=== PATIENT | female | born 1945 ===

== ENCOUNTER 2023-01-12 11:31 | Day surgery (SDC) | payer OTHER ==
[~2023-01-12] VITALS: Ht 165.1 cm; Wt 68.8 kg
[2023-01-12] MEDS ORDERED: Tambocor100 MG PO (11:46)
[2023-01-12] MEDS ORDERED: ANAS1 PO (11:46)
[2023-01-12] MEDS ORDERED: ELIQUIS5 M2 PO (11:46)
[2023-01-12] MEDS ORDERED: FURO40 PO (11:47)
[2023-01-12] MEDS ORDERED: PRAV20 PO (11:48)
[2023-01-12] MEDS ORDERED: METO25ER PO (11:48)
--- NOTE | 2023-01-12 11:57 | NUR ---
01/12/23 1157 Carolina Martinez CALL LIGHT WITHIN REACH. TETRACAINE IN THE LEFT EYE AND PLEDGETT
== END 2023-01-12 13:52 | disposition home or self-care (01) ==
LOC: ORSCSDS 11:31
PROVIDERS: Ophthalmology
PROC: 08DK3ZZ Extraction of Left Lens, Percutaneous Approach (ICD-10-PCS; principal; 2023-01-12 13:00)
DX: H25.12 Age-related nuclear cataract, left eye (principal); I10 Essential (primary) hypertension; I48.91 Unspecified atrial fibrillation; E78.5 Hyperlipidemia, unspecified; Z79.01 Long term (current) use of anticoagulants; Z79.899 Other long term (current) drug therapy
CPT/HCPCS: J2001; J2250; J3010; J3301; J7040; V2632

== ENCOUNTER 2023-03-09 11:39 | Day surgery (SDC) | payer OTHER ==
[~2023-03-09] VITALS: Ht 165.1 cm; Wt 68.6 kg
[~2023-03-09 11:39] MED LIST: ANAS1 PO; ELIQUIS5 M2 PO; FURO40 PO; METO25ER PO; PRAV20 PO; Tambocor100 MG PO
[2023-03-09] MEDS ORDERED: Vitamin B Comple1 EA PO (12:03)
[2023-03-09] MEDS ORDERED: C COMPLEX1000 M1 PO (12:03)
[2023-03-09] MEDS ORDERED: HAIR, SKIN AND1 EAC1 PO (12:03)
[2023-03-09] MEDS ORDERED: MULTIPLE VITAM1 EACH PO (12:04)
[2023-03-09] MEDS ORDERED: OMEGA-3 + VITA200 ML PO (12:04)
[2023-03-09] MEDS ORDERED: THERA-D2000 UNIT PO (12:04)
[2023-03-09] MEDS ORDERED: VITAMIN B-122000 MC1 PO (12:04)
--- NOTE | 2023-03-09 12:18 | NUR ---
03/09/23 1218 Mine Baig TETRICAINE DROP PLACED IN RIGHT EYE AT 1201. PLEDGET FOAM PLACED IN RIGHT EYE AT 1203. PT TOLERATED WELL. CALL LIGHT IN REACH.
--- NOTE | 2023-03-09 13:42 | NUR ---
03/09/23 1342 Pastor Magdaleno IV REMOVED AT 1340, CANULA INTACT. IV SITE WNL. PT TOLERATED PROCEDURE WELL.
== END 2023-03-09 13:50 | disposition home or self-care (01) ==
LOC: ORSCSDS 11:39
PROVIDERS: Ophthalmology
PROC: 08DJ3ZZ Extraction of Right Lens, Percutaneous Approach (ICD-10-PCS; principal; 2023-03-09 13:00)
DX: H25.11 Age-related nuclear cataract, right eye (principal); I10 Essential (primary) hypertension; I48.91 Unspecified atrial fibrillation; Z87.891 Personal history of nicotine dependence; Z79.01 Long term (current) use of anticoagulants; Z79.899 Other long term (current) drug therapy
CPT/HCPCS: J2001; J2250; J3010; J3301; J7040; V2632